=== PATIENT | male | born 1990 | race Caucasian/White ===

== ENCOUNTER 2018-10-30 09:59 | Emergency (ER) | payer OTHER ==
--- NOTE | 2018-10-30 10:28 | EDPHY ---
H & P Time Seen by Provider: 10/30/18 10:03 HPI/ROS: HPI Left thumb laceration. 27-year-old male. He is right-hand dominant. He accidentally cut his left thumb on a sample box maker at work. He sustained a laceration from the radial aspect of the paronychial fold across the finger pad. He reports that he had a tetanus shot 2 years ago. He denies any loss of sensation distally. ROS: Constitutional: No fever, no chills. No weakness. Musculoskeletal: As above. Skin: As above. Neurological: No focal weakness or altered sensation. Past medical history: Adenoidectomy. Left knee ACL surgery. Social history: Nonsmoker. No alcohol. Here by himself. Physical Exam: General Appearance: Alert, no distress. This patient is responding to questions appropriately and in full sentences. This patient appears well- hydrated and well-nourished. Eyes: Pupils equal and round no pallor or injection. No lid edema, erythema or injection. Left thumb exam: Significant for a clean full-thickness laceration from the radial mid paronychial fold across the finger pad but not involving the interphalangeal crease. No foreign body identified on gross exploration. No tendon involvement. The left thumb is neurovascularly intact. Please see wound care note for further details. Neurological: Motor sensory function is grossly intact. Cranial nerves are normal. Gait is normal. Skin: Warm and dry, no rashes. As above. Extremities are symmetrical. All joints range without pain or impingement. Psychiatric: No agitation. No depression. Database: EKG: Imaging: Procedures: Procedure: Laceration repair. Verbal consent was obtained from the patient. The 4 cm laceration on the distal left thumb was anesthetized by digital block with lidocaine without epinephrine in the usual fashion. The wound was irrigated, draped and explored to its base with a gloved finger. There were no deep structures involved. No tendon injury was identified. No foreign body was identified. The wound was repaired with 15, Ethilon 4.0 sutures placed in interrupted fashion. The wound repair was tolerated well and there were no complications. The procedure was performed by myself. Emergency department course: After suture repair, wound care and infection precautions were discussed with the patient in detail. The wound was properly dressed. Follow-up and return to emergency department precautions reviewed. All of his questions were answered. He was discharged from the emergency department in good condition. Differential Diagnosis: The differential diagnosis on this patient includes but is not limited to left distal thumb laceration. Significant neurovascular injury, tendon injury, retained foreign body unlikely. This represents a partial list of diagnoses considered. These considerations are based on history, physical exam, past history, reassessment and diagnostic testing. Smoking Status: Former smoker Constitutional: Initial Vital Signs Temperature (C) 37.2 C 10/30/18 10:06 Heart Rate 106 H 10/30/18 10:06 Respiratory Rate 16 10/30/18 10:06 Blood Pressure 129/84 H 10/30/18 10:06 O2 Sat (%) 96 10/30/18 10:06 O2 Delivery Mode Room Air Allergies/Adverse Reactions: azithromycin Allergy (Verified 10/30/18 10:10) Pt reports GI issues propranolol Allergy (Verified 10/30/18 10:10) Pt unsure of reaction Home Medications: Medication Instructions Recorded Antidepressant 10/30/18 Keppra 10/30/18 Omeprazole 10/30/18 Departure - Departure Disposition: Home, Routine, Self-Care Clinical Impression: Laceration of left thumb Condition: Good Instructions: Finger Laceration (ED), Care For Your Stitches (ED) Additional Instructions: Read and follow provided instructions. Follow-up with your primary care physician or workman's Comp physician in 2-3 days for re-evaluation. Sutures to be removed in 10-12 days. This can be done here. Ibuprofen dosin mg every 6 hours with meals for the next 3 days only. Take only as needed for pain. Return to the emergency department for worsening pain, swelling, signs of infection such as redness, drainage of pus, discoloration or other serious concerns. Referrals: Paul Tee [Medical Doctor] - As per Instructions
[2018-10-30 11:45] VITALS: BP 134/72
== END 2018-10-30 11:30 | disposition home or self-care (01) ==
LOC: CED 09:59
PROC: 0HQGXZZ Repair Left Hand Skin, External Approach (ICD-10-PCS; principal; 2018-10-30)
DX: S61.012A Laceration without foreign body of left thumb without damage to nail, initial encounter (principal); W26.0XXA Contact with knife, initial encounter; Y99.0 Civilian activity done for income or pay
CPT/HCPCS: 99282-ER